=== PATIENT | male | born 1980 | race Caucasian/White ===

== ENCOUNTER 2016-05-17 18:33 | Inpatient (IN) | payer OTHER, MEDICAID ==
[~2016-05-17] VITALS: Ht 188 cm; Wt 108.9 kg
[2016-05-17 18:45] VITALS: BP 148/76
[2016-05-17] MEDS ORDERED: NACL 0.9% 1,000 ML IV ONE ×2 (19:14→20:10)
[2016-05-17] MEDS ORDERED: ONDANSETRON 4 MG/2 ML VIAL IVP ONE (19:15)
[2016-05-17] MEDS ORDERED: metroNIDAZOLE 500 MG/NS PREMIX 100 ML IV ONE (19:15)
[2016-05-17] MEDS ORDERED: PIPERACILLIN/TAZOBACTAM 3.375 GM in DEXTROSE 5% 50 ML IV ONE (19:15)
[2016-05-17] MEDS ORDERED: MORPHINE SULFATE 4 MG/ML SYR IVP ONE (19:15)
--- NOTE | 2016-05-17 19:15 | NUR ---
36/M BIB FAMILY C/O ABDOMINAL PAIN x ONE DAY. PAIN 10/10 RLQ SHARP NON-RADIATING PAIN WORSENS WITH MOVEMENT. PATIENT STATES NAUSEA BUT NO VOMITING OR DIARRHEA. STABLE, ON MONITOR ER MD MADE AWARE.
--- NOTE | 2016-05-17 19:15 | NUR ---
Patient to bed 08.
--- NOTE | 2016-05-17 19:23 | NUR ---
Katarzyna diggs in [facility] - 05/17/16 at 2024 by AFSHAN Patient to bed .
--- NOTE | 2016-05-17 19:29 | NUR ---
Dr. Fitzgerald evaluating patient at bedside.
[2016-05-17 19:33] LABS: BASOPHILS # (AUTO) 0.5 K/uL (0.00-0.22); EOSINOPHILS # (AUTO) 0.1 K/uL (0-0.4); EOSINOPHILS % (AUTO) 0.8 % (0.0-4.0); HEMATOCRIT 49.9 % (36-52); HEMOGLOBIN 16.1 g/dL (12.0-18.0); LYMPHOCYTES # (AUTO) 1.6 K/uL (2.0-11.5); LYMPHOCYTES % (AUTO) 9.5 % (20.5-51.1); MEAN CORPUSCULAR HEMOGLOBIN 29 pg (27-31); MEAN CORPUSCULAR HGB CONC 32 g/dL (33-37); MEAN CORPUSCULAR VOLUME 90 fL (80-94); MONOCYTES # (AUTO) 0.8 K/uL (0.8-1.0); MONOCYTES % (AUTO) 4.7 % (1.7-9.3); NEUTROPHILS # (AUTO) 14.3 K/uL (1.8-7.7); PLATELET COUNT (AUTO) 256 K/uL (140-450); RED BLOOD CELL COUNT(AUTO) 5.55 MIL/uL (4.20-6.10); RED CELL DISTRIBUTION WIDTH 12.6 % (11.6-13.7); WHITE BLOOD COUNT (AUTO) 17.3 K/uL (4.8-10.8)
[2016-05-17 19:48] LABS: ANION GAP 14.9 (8-16); POTASSIUM 3.9 mmol/L (3.5-5.1)
[2016-05-17 19:49] LABS: INR 1.1 (0.8-1.2); PROTHROMBIN TIME 10.1 secs (10.8-13.4)
[2016-05-17] MEDS ORDERED: PIPERACILLIN/TAZOBACTAM 3.375 GM VIAL IV ONE (19:52)
[2016-05-17 19:54] LABS: ALBUMIN 4.6 g/dL (3.4-5.0); TOTAL BILIRUBIN 0.8 mg/dL (0.0-1.0); TOTAL PROTEIN, SERUM 8.2 g/dL (6.4-8.2)
[2016-05-17] MEDS: NACL 0.9% 500 ML IV SCH ×2 (20:13→23:33)
[2016-05-17] MEDS ORDERED: ACETAMINOPHEN 325 MG TAB PO PRN (20:15)
[2016-05-17] MEDS ORDERED: HYDROcodone/APAP 5/325 MG 1 TAB TAB PO PRN (20:15)
[2016-05-17] MEDS ORDERED: ONDANSETRON 4 MG/2 ML VIAL IVP PRN (20:15)
[2016-05-17] MEDS ORDERED: DOCUSATE SODIUM 100 MG GELCAP PO PRN (20:15)
[2016-05-17] MEDS ORDERED: NACL 0.9% 2,000 ML IV ONE (20:20)
--- NOTE | 2016-05-17 20:41 | NUR ---
Patient will be admitted to care of MED SURG. Admited to [facility]. Will go to [facility]. Belongings list completed. Report to JACEK.
[2016-05-17 20:45] LABS: BILIRUBIN,DIRECT 0.1 mg/dL (0.0-0.3); CHOL/HDL RATIO 4.5 (1-4.5)
--- NOTE | 2016-05-17 20:52 | NUR ---
PT TRASPORTED TO MED SURG BY [facility] EMT, VIA WHEELCHAIR. UNABLE TO COLLECT URINE ON THE FLOOR ER MD NOTIFIED.
--- NOTE | 2016-05-17 20:59 | NUR ---
RECEIVED FROM ER PER KEVIN AWAKE AND ALERT. ACCOMPANIED BY FATHER. NO SOB. DX. ACUTE APPENDICITIS. ABLE TO VERBALIZE NEEDS WELL. CARE PLANS FOR THE NIGHT DISCUSSED WITH PT. CALL LIGHT WITH IN REACH. AFEBRILE. IVF SITE TO LAC #20. FLAGYL INFUSING FROM ER AND WITH NS.
[2016-05-17 21:26] LABS: FREE T4 (FREE THYROXINE) 0.96 ng/dL (0.76-1.46); THYROID STIMULATING HORMONE 1.3 uIU/mL (0.34-3.76)
[2016-05-17] MEDS: LACTOBACILLUS RHAMNOSUS GG 1 EACH CAP PO SCH (21:32)
[2016-05-17] MEDS: MORPHINE SULFATE 2 MG/ML SYR IVP PRN (21:32)
[2016-05-17 21:38] VITALS: BP 137/90
--- NOTE | 2016-05-17 21:40 | NUR ---
PT. COMPLAINED WITH ABDOMINAL PAIN STILL . FACIAL GRIMACING, RESTLESSNESS NOTED. PT. MASSAGING ABDOMEN. REQUESTED FOR PAIN RELIEVER. FATHER AT BEDSIDE. MEDICATED WITH MORPHINE 2 MG IVP ORDERED. VERBALIZES WELL.
[2016-05-17 23:22] LABS: APPEARANCE,URINE CLEAR (CLEAR); BILIRUBIN,URINE NEGATIVE (NEGATIVE); BLOOD, URINE 1+ (NEGATIVE); COLOR,URINE YELLOW (YELLOW); LEUKOCYTE ESTERASE ,URINE NEGATIVE (NEGATIVE); NITRITE, URINE NEGATIVE (NEGATIVE); PROTEIN,URINE NEGATIVE (NEGATIVE); UGLUCOSE NEGATIVE (NEGATIVE); UROBILINOGEN,URINE 0.2 EU/dL (0.2 - 1)
[2016-05-17 23:30] LABS: AMPHETAMINE, URINE NEG. ng/ml (NEG <=1000); BARBITURATE, URINE NEG. ng/ml (NEG <=200); BENZODIAZEPINE, URINE NEG. ng/mL (NEG <=200); CANNABINOID, URINE NEG. ng/mL (NEG <=50); COCAINE, URINE NEG. ng/mL (NEG <=300); OPIATE, URINE POS. ng/mL (NEG <=2000); PHENCYCLIDINE SCREEN,URINE NEG. ng/mL (NEG <=25)
--- NOTE | 2016-05-17 23:36 | NUR ---
SLEEPING AT THIS TIME. CALL LIGHT WITH IN REACH AT BEDSIDE.
[2016-05-17 23:47] LABS: BACTERIA,URINE R /HPF (None Seen); RBC,URINE 3-10 (FEW) /HPF (0-5); SQUAMOUS EPITHELIAL CELL,UR 0-3 (FEW) /LPF (0-3 (FEW)); WBC,URINE 0-5 (RARE) /HPF (0-5)
[2016-05-18] VITALS: BP 130/89
[2016-05-18] MEDS: PIPERACILLIN/TAZOBACTAM 3.375 GM in DEXTROSE 5% 50 ML IV SCH ×2 (00:34→05:15)
[2016-05-18] MEDS ORDERED: PIPERACILLIN/TAZOBACTAM 3.375 GM VIAL IV ONE ×4 (00:35→11:17)
[2016-05-18] MEDS: MORPHINE SULFATE 2 MG/ML SYR IVP PRN ×2 (02:00→05:36)
--- NOTE | 2016-05-18 02:11 | NUR ---
PT. WOKE UP AND REQUESTED FOR PAIN RELIEVER. "I AM IN PAIN AGAIN" MEDICATED REQUESTED WITH MORPHINE 2 MG. IVP. USES CALL LIGHT FOR HELP. INFORMED HIM THAT HE IS NPO EXCEPT MEDICATIONS. "OK" MD HERNÁNDEZ TO SEE PT. TOMORROW RT CONSULT. PT. AWARE.
[2016-05-18] MEDS: NACL 0.9% 500 ML IV SCH ×2 (02:53→05:17)
--- NOTE | 2016-05-18 04:06 | NUR ---
SLEEPING AT THIS TIME STILL. NO FURTHER COMPLAINTS DONE. CALL LIGHT AT BEDSIDE. A/O X 4. ROM X 4.
--- NOTE | 2016-05-18 05:40 | NUR ---
PT. SITTING ON EDGE OF BED. AWAKE AND ALERT. PT. REQUESTED FOR PAIN RELIEVER RT LOWER ABDOMEN HURTING AGAIN. MEDICATED REQUESTED. IVF SITE PATENT AND WITH GOOD BLOOD RETURN. USES CALL LIGHT FOR HELP. REMINDED NPO EXCEPT MEDICATIONS.
--- NOTE | 2016-05-18 06:30 | NUR ---
SLEEPING AT THIS TIME.
[2016-05-18 06:50] LABS: HEMATOCRIT 45.5 % (36-52); HEMOGLOBIN 15.1 g/dL (12.0-18.0); MEAN CORPUSCULAR HEMOGLOBIN 30 pg (27-31); MEAN CORPUSCULAR HGB CONC 33 g/dL (33-37); MEAN CORPUSCULAR VOLUME 90 fL (80-94); PLATELET COUNT (AUTO) 216 K/uL (140-450); RED BLOOD CELL COUNT(AUTO) 5.04 MIL/uL (4.20-6.10); RED CELL DISTRIBUTION WIDTH 12.8 % (11.6-13.7); WHITE BLOOD COUNT (AUTO) 16.3 K/uL (4.8-10.8)
--- NOTE | 2016-05-18 07:00 | NUR ---
RECEIVED REPORT FROM NIGHT NURSE. PT IS AAOX4, ON ROOM AIR, IV TO LEFT AC 20G INFUSING WELL. INITIAL ASSESSMENT COMPLETED. REVIEWED PLAN OF CARE WITH PT, PT VERBALIZED UNDERSTANDING. ALL SAFETY PRECAUTIONS MET, ALL NEEDS MET. CALL LIGHT WITHIN REACH. WILL CONTINUE TO MONITOR.
[2016-05-18 07:01] LABS: ANION GAP 12.7 (8-16); CALCIUM 8.2 mg/dL (8.5-10.1); CARBON DIOXIDE 29.3 mmol/L (21-32); CREATININE 0.9 mg/dL (0.6-1.3)
[2016-05-18 07:08] LABS: MAGNESIUM 1.8 mg/dL (1.8-2.4)
[2016-05-18 07:21] LABS: BAND % (MANUAL) 4 % (0-8); BASOPHILS % (MANUAL) 1 % (0-2); EOSINOPHILS % (MANUAL) 1 % (0-4); LYMPHOCYTES % (MANUAL) 11 % (20-46); MONOCYTES % (MANUAL) 8 % (5-12); NEUTROPHILS % (MANUAL) 75 (43-65)
[2016-05-18 07:22] LABS: PLATELET ESTIMATE ADEQUATE
[2016-05-18 08:00] VITALS: BP 147/93
[2016-05-18] MEDS: NACL 0.9% 1,000 ML IV SCH ×3 (08:32→21:52)
[2016-05-18] MEDS: FAMOTIDINE 20 MG TAB PO SCH (08:33)
[2016-05-18] MEDS: LACTOBACILLUS RHAMNOSUS GG 1 EACH CAP PO SCH (08:33)
[2016-05-18] MEDS: PANTOPRAZOLE 40 MG INJ VIAL IVP SCH (08:33)
--- NOTE | 2016-05-18 08:35 | NUR ---
DUE MEDICATIONS GIVEN. PT TOLERATED WELL. DAD AT BEDSIDE. WILL CONTINUE TO MONITOR.
--- NOTE | 2016-05-18 08:57 | NUR ---
PATIENT HAS BEEN SCREENED AND CATEGORIZED HIGH NUTRITION RISK. PATIENT WILL BE SEEN WITHIN 1-2 DAYS OF ADMISSION. 05/19/16-05/20/[address]
[2016-05-18] MEDS: MORPHINE SULFATE 4 MG/ML SYR IVP PRN ×3 (09:26→23:59)
[2016-05-18] MEDS ORDERED: LIDOCAINE 1% 50 ML ONE (10:51)
[2016-05-18] MEDS ORDERED: BUPIVACAINE-MPF 0.25% 30 ML VIAL INJ ONE (10:51)
--- NOTE | 2016-05-18 10:58 | NUR ---
PT LEFT UNIT TO OR IN STABLE CONDITION
[2016-05-18] MEDS ORDERED: ROCURONIUM 50 MG/5 ML VIAL IV ONE (11:15)
[2016-05-18] MEDS ORDERED: NEOSTIGMINE 1:1000 10 MG/10 ML VIAL IV ONE (11:15)
[2016-05-18] MEDS ORDERED: DESFLURANE 240 ML BTL INH ONE (11:15)
[2016-05-18] MEDS ORDERED: PROPOFOL 200 MG/20 ML VIAL IV ONE (11:15)
[2016-05-18] MEDS ORDERED: ONDANSETRON 4 MG/2 ML VIAL IVP ONE (11:15)
[2016-05-18] MEDS ORDERED: GLYCOPYRROLATE 0.2 MG/ML VIAL IV ONE (11:15)
[2016-05-18] MEDS ORDERED: KETOROLAC 60 MG/2 ML VIAL IM ONE (11:15)
[2016-05-18] MEDS ORDERED: SUCCINYLCHOLINE CHLORIDE 200 MG/10 ML VIAL IV ONE (11:15)
[2016-05-18] MEDS ORDERED: fentaNYL 0.05 MG/ML VIAL ONE (11:36)
[2016-05-18] MEDS ORDERED: MIDAZOLAM 2 MG/2 ML VIAL ONE (11:36)
[2016-05-18] MEDS ORDERED: MORPHINE SULFATE 4 MG/ML SYR ONE (11:37)
[2016-05-18] MEDS: PIPER/TAZO 3.375GM/D5W PREMIX 50 ML IV SCH ×3 (12:00→23:56)
[2016-05-18] MEDS ORDERED: MORPHINE SULFATE 4 MG/ML SYR IVP PRN ×2 (12:10)
[2016-05-18] MEDS ORDERED: MIDAZOLAM 2 MG/2 ML VIAL IV ONE (12:10)
[2016-05-18] MEDS ORDERED: METOCLOPRAMIDE 10 MG/2 ML INJ VIAL IVP PRN (12:10)
[2016-05-18] MEDS ORDERED: MORPHINE SULFATE 2 MG/ML SYR IVP PRN (12:10)
--- NOTE | 2016-05-18 13:40 | NUR ---
PT ARRIVED TO UNIT FROM OR S/S LAP APPY, PT IS AAOX4, 3 ABD DRESSINGS DRY AND INTACT. VS TEMP 98.8, BP 128/83, HR 99, PULSE OX 95 ON ROOM AIR. RR 18. ALL NEEDS MET DAD AT BEDSIDE. CALL LIGHT WITHIN REACH. WILL CONTINUE TO MONITOR.
[2016-05-18] MEDS: metroNIDAZOLE 500 MG/NS PREMIX 100 ML IV SCH ×2 (13:51→20:33)
--- NOTE | 2016-05-18 13:55 | NUR ---
VS. TEMP 98.5, BP 120/ HR 91, PULSE OX 92 ON ROOM AIR. RR 18. WILL CONTINUE TO MONITOR.
--- NOTE | 2016-05-18 14:10 | NUR ---
VS TEMP. 98.4, BP 110/72, HR 93, PULSE OX 92% ON ROOM AIR RR 18. DAD AT BEDSIDE. CALL LIGHT WITHIN REACH. WILL CONTINUE TO MONITOR.
--- NOTE | 2016-05-18 14:25 | NUR ---
VS TEMP 98.8, BP 119/72, HR 107, PULSE OX 92% ON ROOM AIR, RR 18, NO S/S OF DISTRESS OR DISCOMFORT NOTED. ALL NEEDS MET. CALL LIGHT WITHIN REACH. WILL CONTINUE TO MONITOR.
--- NOTE | 2016-05-18 14:55 | NUR ---
VS TEMP 98.9, BP 121/75, HR 97, PULSE OX 92 ON ROOM AIR. CALL LIGHT WITHIN REACH.
--- NOTE | 2016-05-18 15:56 | NUR ---
05/18/16 RD INITIAL ASSESSMENT COMPLETED PLEASE REFER TO NUTRITION ASSESSMENT UNDER CARE ACTIVITY FOR ESTIMATED NUTRITIONAL NEEDS. RD RECOMMENDATIONS: 1. CONTINUE NPO MEDICALLY APPROPRIATE PER MD. 2. IIF/WHEN PT IS MEDICALLY STABLE TO BEING NUTRITION, CONSIDER CLEAR LIQUID DIET AND ADVANCE TOLERATED TO REGULAR DIET. 3. RD WILL F/U 3-5 DAYS; MODERATE RISK. JHON SLADE, RD
[2016-05-18 16:00] VITALS: BP 129/68
--- NOTE | 2016-05-18 16:25 | NUR ---
VS TEMP 99.5, BP 130/86, HR 105, PULSE OX 95 ON ROOM AIR. DAD AT BEDSIDE, EDUCATED AND PROVIDED IS, PT VERBALIZED UNDERSTANDING . ALL NEEDS MET.
--- NOTE | 2016-05-18 17:10 | NUR ---
DUE MEDICATION GIVEN, PT CURRENTLY RESTING IN BED. DAD AT BEDSIDE. CALL LIGHT WITHIN REACH. WILL CONTINUE TO MONITOR.
--- NOTE | 2016-05-18 19:19 | NUR ---
ENDORSED PLAN OF CARE TO NIGHT NURSE, PT IN STABLE CONDITION.
--- NOTE | 2016-05-18 19:24 | NUR ---
RECEIVED PT IN STABLE CONDITION FROM AM NURSE. AWAKE,ALERT AND ORIENTED X4. MED SURG. S/P LAP APPY. WITH X3 DRESSING ON THE ABDOMEN. HAS IVF INFUSING WELL ON THE LT AC #20. CLEAR AND PATENT. JUST MEDICATED FOR PAIN . NO C/O PAIN ATT HIS TIME. PLAN OF CARE DISCUSSED AND VERBALIZED UNDERSTANDING. CALL LIGHT PLACED WITHIN EASY REACH. WILL CONTINUE TO MONITOR. .
[2016-05-18 20:00] VITALS: BP 130/83
--- NOTE | 2016-05-18 21:30 | NUR ---
FAMILY BROUGHT SOME SOUP. PT TOLERATED WELL. NO N/V NOTED.
[2016-05-18 23:50] VITALS: BP 140/84
--- NOTE | 2016-05-19 00:30 | NUR ---
PT IS SLEEPING WELL. NO MORE S/S OF ANY DISCOMFORT NOR PAIN NOTED. WILL CONTINUE TO MONITOR.
--- NOTE | 2016-05-19 02:30 | NUR ---
MADE AROUNDS. SLEEPING WELL. NO S/S OF ANY DISCOMFORT NOR APIN NOTED. WILL CONTINUE TO MONITOR.
[2016-05-19] MEDS: NACL 0.9% 1,000 ML IV SCH ×5 (02:31→21:34)
[2016-05-19 04:12] VITALS: BP 127/79
--- NOTE | 2016-05-19 04:15 | NUR ---
VITAL SIGNS STABLE. NO C/O OF ANY PAIN AT THIS TIME.
[2016-05-19] MEDS: metroNIDAZOLE 500 MG/NS PREMIX 100 ML IV SCH ×3 (04:35→21:32)
[2016-05-19] MEDS: PIPER/TAZO 3.375GM/D5W PREMIX 50 ML IV SCH ×3 (05:38→18:05)
--- NOTE | 2016-05-19 06:00 | NUR ---
PT IS SLEEPING. EASILY AROUSED BY NAME CALLED. NO C/O ANY PAIN AT THIS TIME. WILL CONTINUE TO MONITOR.
--- NOTE | 2016-05-19 06:24 | NUR ---
GETTING BREATHING TREATMENT AT THIS TIME. NO DISTRESS NOTED. Addendum: 05/19/16 at 0649 by Emily Simms RN CANCEL ABOVE NOTE. WRONG PATIENT.
[2016-05-19 07:08] LABS: CALCIUM 7.6 mg/dL (8.5-10.1); CARBON DIOXIDE 30.2 mmol/L (21-32); CREATININE 1.1 mg/dL (0.6-1.3); POTASSIUM 4.2 mmol/L (3.5-5.1)
[2016-05-19 07:19] LABS: BASOPHILS # (AUTO) 0.1 K/uL (0.00-0.22); EOSINOPHILS # (AUTO) 0.2 K/uL (0-0.4); EOSINOPHILS % (AUTO) 1.7 % (0.0-4.0); HEMATOCRIT 40.2 % (36-52); HEMOGLOBIN 13.7 g/dL (12.0-18.0); LYMPHOCYTES # (AUTO) 2.2 K/uL (2.0-11.5); LYMPHOCYTES % (AUTO) 18.7 % (20.5-51.1); MEAN CORPUSCULAR HEMOGLOBIN 31 pg (27-31); MEAN CORPUSCULAR HGB CONC 34 g/dL (33-37); MEAN CORPUSCULAR VOLUME 91 fL (80-94); MONOCYTES % (AUTO) 8.8 % (1.7-9.3); NEUTROPHILS # (AUTO) 8.3 K/uL (1.8-7.7); NEUTROPHILS % (AUTO) 69.8 % (42.2-75.2); PLATELET COUNT (AUTO) 177 K/uL (140-450); RED BLOOD CELL COUNT(AUTO) 4.42 MIL/uL (4.20-6.10); RED CELL DISTRIBUTION WIDTH 13.1 % (11.6-13.7); WHITE BLOOD COUNT (AUTO) 11.8 K/uL (4.8-10.8)
--- NOTE | 2016-05-19 07:30 | NUR ---
ENDORSED PT IN STABLE CONDITION TO AM NURSE.
--- NOTE | 2016-05-19 07:30 | NUR ---
RECEIVED PATIENT REPORT AT BEDSIDE. PATIENT AWAKE, ALERT AND ORIENTED. NO S/S OF DISTRESS NOTED. PT S/P LAP APPY 05/18. THREE ABDOMINAL INCISIONS NOTED, COVERED WITH CLEAN, DRY AND INTACT DRESSING. PATIENT REPORTS OF TOLERABLE PAIN AT THIS TIME. IV LINE NOTED TO THE LEFT HAND WITH IVF INFUSING WELL. WILL CONTINUE TO MONITOR
[2016-05-19 07:38] LABS: ALBUMIN 2.9 g/dL (3.4-5.0); MAGNESIUM 1.8 mg/dL (1.8-2.4); PHOSPHORUS 2.9 mg/dL (2.5-4.9)
[2016-05-19 08:00] VITALS: BP 140/82
--- NOTE | 2016-05-19 08:30 | NUR ---
ADMINISTERED MORNING MEDICATIONS. PT TOLERATED WELL. PT IS RESTING IN BED AND HIS FATHER IS VISITING HIM.
[2016-05-19] MEDS: FAMOTIDINE 20 MG TAB PO SCH (08:36)
[2016-05-19] MEDS: LACTOBACILLUS RHAMNOSUS GG 1 EACH CAP PO SCH (08:36)
[2016-05-19] MEDS: PANTOPRAZOLE 40 MG INJ VIAL IVP SCH (08:37)
[2016-05-19] MEDS: MORPHINE SULFATE 4 MG/ML SYR IVP PRN ×2 (08:38→16:44)
--- NOTE | 2016-05-19 10:50 | NUR ---
PT IN BED RESTING. PATIENTS FATHER IS IN THE ROOM VISITING. PT ASKED IF HE CAN TAKE A SHOWER. PT HAS NO S/S OF DISTRESS.
--- NOTE | 2016-05-19 11:04 | NUR ---
PER DR BUSH, PATIENT'S DIET CAN BE ADVANCED TO REGULAR. ALSO STATES THAT PATIENT CAN TAKE A SHOWER
--- NOTE | 2016-05-19 11:47 | NUR ---
PT IS AMBULATING IN THE UNIT WITH FAMILY MEMBER. PT IS TOLERATING WELL.
--- NOTE | 2016-05-19 12:10 | NUR ---
PT IN BED AND SHOWS NO S/S OF DISTRESS. PT HAS NO C/O PAIN. PT IS EATING AND TOLERATING WELL.
--- NOTE | 2016-05-19 13:00 | NUR ---
PT WENT TO BATHROOM AND STATED HE HAD A BOWEL MOVEMENT.
--- NOTE | 2016-05-19 15:00 | NUR ---
PT IS SHOWERING.
[2016-05-19 16:00] VITALS: BP 147/89
--- NOTE | 2016-05-19 19:15 | NUR ---
GAVE PT REPORT AT BEDSIDE. PT ENDORSED IN STABLE CONDITION.
--- NOTE | 2016-05-19 19:30 | NUR ---
RECEIVED PT IN STABLE CONDITION FROM AM NURSE. AWAKE,ALERT AND ORIENTED X4. MED SURG PT. AMBULATORY. WITH NO C/O PAIN . HAS IVF INFUSING WELL ON THE LT HAND . ABDOMEN WITH INCISION X3, COVERED WITH DRESSING LARGE BAND AIDS. NO DRAIN NOTED. PLAN OF CARE DISCUSSED . VERBALIZED UNDERSTANDING. CALL LIGHT PLACED WITHIN EASY REACH. WILL CONTINUE TO MONITOR.
--- NOTE | 2016-05-19 22:00 | NUR ---
SLEEPING WELL AT THIS TIME. NO S/S OF ANY DISCOMFORT NOR PAIN NOTED.
[2016-05-20] VITALS: BP 140/96
[2016-05-20] MEDS: PIPER/TAZO 3.375GM/D5W PREMIX 50 ML IV SCH ×2 (00:07→06:02)
[2016-05-20] MEDS: MORPHINE SULFATE 4 MG/ML SYR IVP PRN (00:07)
--- NOTE | 2016-05-20 00:07 | NUR ---
VITAL SIGNS STABLE. C/O POST OP PAIN. MEDICATED ORDERED. WILL CONTINUE TO MONITOR.
--- NOTE | 2016-05-20 01:00 | NUR ---
ASLEEP. NO S/S OF DISCOMFORT NOTED.
--- NOTE | 2016-05-20 05:00 | NUR ---
SLEPT WELL DURING THE NIGHT. WILL CONTINUE TO MONITOR.
[2016-05-20] MEDS: metroNIDAZOLE 500 MG/NS PREMIX 100 ML IV SCH (05:03)
[2016-05-20] MEDS: NACL 0.9% 1,000 ML IV SCH (05:48)
[2016-05-20 06:02] LABS: BASOPHILS # (AUTO) 0.2 K/uL (0.00-0.22); BASOPHILS % (AUTO) 2.7 % (0.0-2.0); EOSINOPHILS # (AUTO) 0.3 K/uL (0-0.4); EOSINOPHILS % (AUTO) 3.9 % (0.0-4.0); HEMATOCRIT 41.1 % (36-52); HEMOGLOBIN 13.7 g/dL (12.0-18.0); LYMPHOCYTES # (AUTO) 2.7 K/uL (2.0-11.5); LYMPHOCYTES % (AUTO) 34.8 % (20.5-51.1); MEAN CORPUSCULAR HEMOGLOBIN 30 pg (27-31); MEAN CORPUSCULAR HGB CONC 33 g/dL (33-37); MEAN CORPUSCULAR VOLUME 91 fL (80-94); MONOCYTES # (AUTO) 0.9 K/uL (0.8-1.0); NEUTROPHILS # (AUTO) 3.6 K/uL (1.8-7.7); NEUTROPHILS % (AUTO) 47.6 % (42.2-75.2); PLATELET COUNT (AUTO) 184 K/uL (140-450); RED BLOOD CELL COUNT(AUTO) 4.51 MIL/uL (4.20-6.10); WHITE BLOOD COUNT (AUTO) 7.7 K/uL (4.8-10.8)
[2016-05-20 06:22] LABS: ANION GAP 10.7 (8-16); CALCIUM 8.4 mg/dL (8.5-10.1); CARBON DIOXIDE 28.2 mmol/L (21-32); CREATININE 0.9 mg/dL (0.6-1.3); POTASSIUM 3.9 mmol/L (3.5-5.1)
--- NOTE | 2016-05-20 07:25 | NUR ---
ENDORSED PT IN STABLE CONDITION TO AM NURSE.
--- NOTE | 2016-05-20 07:26 | NUR ---
PT ALERT AND ORIENTED X4, BREATHING EVENLY AND UNLABORED, NO SIGNS OF ACUTE DISTRESS. SKIN IS WARM AND DRY. S/P LAP APPY 05/18/16. NOTED 3 ABDOMINAL INCISIONS KEPT CLEAN DRY AND INTACT. NO NOTED BLEEDING OR DISCHARGE ON SURGICAL SITE. NO C/O ANY BOWEL/BLADDER DISCOMFORT. ABLE TO PERFORM ADL'S UNASSISTED. NO C/O ANY PAIN AT THIS TIME. ALL NEEDS ATTENDED, SAFETY PRECAUTIONS MAINTAINED. CALL LIGHT WITHIN REACH.
[2016-05-20 08:00] VITALS: BP 145/102
[2016-05-20] MEDS: LACTOBACILLUS RHAMNOSUS GG 1 EACH CAP PO SCH (08:49)
[2016-05-20] MEDS: FAMOTIDINE 20 MG TAB PO SCH (08:49)
[2016-05-20] MEDS: PANTOPRAZOLE 40 MG INJ VIAL IVP SCH (08:49)
[2016-05-20] MEDS ORDERED: METR500T1 PO (09:52)
[2016-05-20] MEDS ORDERED: CIPR500T4 PO (09:52)
[2016-05-20] MEDS ORDERED: LACT1.4C PO (09:52)
[2016-05-20] MEDS ORDERED: ACET-2869 PO (10:13)
--- NOTE | 2016-05-20 10:40 | NUR ---
PT ALERT AND RESPONSIVE, NO SIGNS OF ACUTE DISTRESS. MAY D/C HOME ORDERED. INSTRUCTED TO FOLLOW UP WITH DR. HERNÁNDEZ ON 05/27/16. REVIEWED DISCHARGE PRESCRIPTIONS INDICATIONS AND SIDE EFFECTS. PT AND FAMILY VERBALIZED UNDERSTANDING. WOUND PHOTO TAKEN ON ABDOMEN/SURGICAL SITE. WOUND CARE TEACHING AND SUPPLIES PROVIDED. IV LINE AND WRIST BANDS REMOVED. PICKED UP BY FAMILY AND PERSONAL BELONGINGS WITH PT UPON DISCHARGE. TO HOME WITH PRIVATE AUTO.
--- NOTE | 2016-05-20 15:47 | NUR ---
CM NOTE PER PIECER UP [facility], REVIEWS SHOULD VBE SENT TO [facility]. INITIAL REVIEW SENT TO [facility] FAX# [phone] PH# [phone].
--- NOTE | 2016-05-21 08:01 | NUR ---
RECEIVED A CALL ON 05/20 THAT NEREIDA FROM [employer] THE [employer]. I FAXED REVIEW TO HER AT [phone]. PHONE [phone]
== END 2016-05-20 10:40 | disposition home or self-care (01) | DRG 854 ==
LOC: MED 18:33 → MTU 20:23
PROVIDERS: ADMIT Family Medicine; ATTEND Family Medicine
PROC: 0DTJ4ZZ Resection of Appendix, Percutaneous Endoscopic Approach (ICD-10-PCS; principal; 2016-05-18 11:00)
DX: A41.9 Sepsis, unspecified organism (principal); K35.80 Unspecified acute appendicitis; E44.0 Moderate protein-calorie malnutrition; E66.9 Obesity, unspecified; R31.29 Other microscopic hematuria; E78.5 Hyperlipidemia, unspecified; Z87.891 Personal history of nicotine dependence; Z82.49 Family history of ischemic heart disease and other diseases of the circulatory system; Z68.30 Body mass index [BMI] 30.0-30.9, adult; Z71.3 Dietary counseling and surveillance
CPT/HCPCS: 36415; 71010; 76770; 80048; 80053; 80305; 81001; 82040; 82150; 82248; 83036; 83605; 83690; 83735; 83880; 84100; 84439; 84443; 85025; 85610; 86886; 86900; 86901; 87040; 87081; 87086; 93005; 96365; 96367; 96375; 99285; C9113; J0330; J1885; J2001; J2250; J2270; J2405; J2543; J2704; J2710; J3010; J3490; J7030; J7060; Q0092